=== PATIENT | male | born 1990 | race American Indian/Alaskan Native ===

== ENCOUNTER 2016-09-16 07:35 | Emergency (ER) | payer OTHER ==
[2016-09-16 07:36] VITALS: BMI 31.1
[2016-09-16 08:23] VITALS: RESP 18; O2SAT 99
[2016-09-16 10:00] VITALS: BP 126/71; PULSE 74; TEMP 98
--- NOTE | 2016-09-16 10:17 | ED PDOC ---
Arrival/HPI - General Chief Complaint: GI Problem Time Seen by Provider: 09/16/16 09:38 Historian: Patient - History of Present Illness Narrative History of Present Illness (Text): 09/16/16 09:21 Juan Knowles is a 26 year old male who does not provide any past medical history, presents to the emergency department for rectal bleeding, duration two days. Patient reports blood is a small amount which is bright in color. Patient denies prior history of rectal bleeding. Patient otherwise denies any travel outside of the [place] fever, chills, chest pain, shortness of breath, nausea, vomiting, diarrhea, urinary symptoms, back pain, neck pain, headache, dizziness , or any other complaints. PMD: None reported. Time/Duration: Other (2 days) Symptom Onset: Gradual Symptom Course: Unchanged Activities at Onset: Light Context: Home Past Medical History - Provider Review Nursing Documentation Reviewed: Yes - Infectious Disease Hx of Infectious Diseases: None - Psychiatric Hx Substance Use: No - Surgical History Hx Musculoskeletal Surgery: Yes (Left knee) - Anesthesia Hx Anesthesia: No Family/Social History - Physician Review Nursing Documentation Reviewed: Yes Family/Social History: No Known Family HX Smoking Status: Never Smoked Hx Alcohol Use: Yes Frequency of alcohol use: Socially Hx Substance Use: No Allergies/Home Meds Allergies/Adverse Reactions: Allergies No Known Allergies Allergy (Verified 09/16/16 09:29) Review of Systems - Physician Review All systems were reviewed & negative as marked: Yes - Review of Systems Constitutional: Normal. absent: Fevers Eyes: Normal ENT: Normal Respiratory: Normal. absent: SOB, Cough Cardiovascular: Normal. absent: Chest Pain Gastrointestinal: Other (Rectal Bleeding ). absent: Abdominal Pain, Diarrhea, Nausea, Vomiting, Hematochezia, Hematemesis Genitourinary Male: Normal. absent: Dysuria, Frequency, Hematuria, Urinary Output Changes Musculoskeletal: Normal. absent: Back Pain, Neck Pain Skin: Normal Neurological: Normal. absent: Headache, Dizziness Endocrine: Normal Hemo/Lymphatic: Normal Psychiatric: Normal Physical Exam Vital Signs Reviewed: Yes Vital Signs Temp Pulse Resp BP Pulse Ox 09/16/16 09:59 98 F 74 18 126/71 99 09/16/16 07:45 97.7 F 54 L 18 143/76 99 Temperature: Afebrile Blood Pressure: Normal Pulse: Bradycardic Respiratory Rate: Normal Appearance: Positive for: Well-Appearing, Non-Toxic, Comfortable Pain Distress: None Mental Status: Positive for: Alert and Oriented X 3 - Systems Exam Head: Present: Atraumatic, Normocephalic Pupils: Present: PERRL Conjunctiva: Present: Normal Mouth: Present: Moist Mucous Membranes Respiratory/Chest: Present: Clear to Auscultation, Good Air Exchange. No: Respiratory Distress, Accessory Muscle Use Cardiovascular: Present: Regular Rate and Rhythm, Normal S1, S2. No: Murmurs Abdomen: Present: Normal Bowel Sounds. No: Tenderness, Distention, Peritoneal Signs Breast/Axillary: Present: Other (External Hemorrhoids; non-thrombosed) Neurological: Present: GCS=15, CN II-XII Intact, Speech Normal Skin: Present: Warm, Dry, Normal Color. No: Rashes Psychiatric: Present: Alert, Oriented x 3, Normal Insight, Normal Concentration Medical Decision Making ED Course and Treatment: 09/16/16 09:21 Impression: 26 year old male presenting for rectal bleeding today. Prior Visits: Notes and results from previous visits were reviewed. Patient was last seen in the emergency department on 12/04/15 for lower back pain. Progress Notes: 09/16/16 9:55 On re-evaluation, the patient is in no acute distress. I have discussed the plan with the patient, who expresses understanding. Patient in agreement with plan to discharged home. Patient is stable for discharge. Patient was instructed to follow up with physician/clinic in 1-2 days or return if symptoms worsen or new concerning symptoms arise. - Scribe Statement The provider has reviewed the documentation as recorded by the Talisha Peres Provider Attestation: All medical record entries made by the Talisha were at my direction and personally dictated by me. I have reviewed the chart and agree that the record accurately reflects my personal performance of the history, physical exam, medical decision making, and the department course for this patient. I have also personally directed, reviewed, and agree with the discharge instructions and disposition. Disposition/Present on Arrival - Present on Arrival Any Indicators Present on Arrival: No History of DVT/PE: No History of Uncontrolled Diabetes: No Urinary Catheter: No History of Decub. Ulcer: No History Surgical Site Infection Following: None - Disposition Have Diagnosis and Disposition been Completed?: Yes Diagnosis: Hemorrhoids Disposition: HOME/ ROUTINE Disposition Time: 09:10 Condition: GOOD Discharge Instructions (ExitCare): Hemorrhoids (ED) Additional Instructions: Thank you for letting us take care of you today. Your provider was Dr. Raya. You were treated for hemorrhoids. The emergency medical care you received today was directed at your acute symptoms. If you were prescribed any medication, please fill it and take as directed. It may take several days for your symptoms to resolve. Return to the Emergency Department if your symptoms worsen, do not improve, or if you have any other problems. Please contact your doctor or call one of the physicians/clinics you have been referred to that are listed on the Patient Visit Information form that is included in your discharge packet. Bring any paperwork you were given at discharge with you along with any medications you are taking to your follow up visit. Our treatment cannot replace ongoing medical care by a primary care provider (PCP) outside of the emergency department. Thank you for allowing the [facility] team to be part of your care today. Follow up with your doctor for re-evaluation in 3-4 days. Prescriptions: Docusate [Colace] 100 mg PO Q8 PRN #30 cap PRN Reason: Constipation Referrals: PCP,NO [Primary Care Provider] - Follow up with primary
== END 2016-09-16 10:01 | disposition home or self-care (01) ==
LOC: ED 07:35
DX: K64.9 Unspecified hemorrhoids (principal)